=== PATIENT | female | born 1965 | race Caucasian/White ===

== ENCOUNTER 2017-12-18 18:04 | Inpatient (IN) | payer OTHER ==
[2017-12-18 18:42] LABS: HEMATOCRIT 45.1 % (36.0-47.0); HEMOGLOBIN 15.6 g/dl (12.0-15.5); MEAN CORPUSCULAR HEMOGLOBIN 32.2 pg (27.0-33.0); MEAN CORPUSCULAR HGB CONC 34.6 g/dl (32.0-36.5); MEAN CORPUSCULAR VOLUME 93.2 fl (80.0-96.0); PLATELET COUNT, AUTOMATED 198 10^3/uL (150-450); RED BLOOD COUNT 4.84 10^6/uL (4.00-5.40); RED CELL DISTRIBUTION WIDTH 13.2 % (11.5-14.5); WHITE BLOOD COUNT 7.2 10^3/uL (4.0-10.0)
[2017-12-18] MEDS: NICOTINE 21MG/24HR 1 EA TRANSDERMAL TD (18:44)
[2017-12-18 19:01] LABS: ALBUMIN 4.4 GM/DL (3.2-5.2); ALBUMIN/GLOBULIN RATIO 1.22 (1.00-1.93); ALKALINE PHOSPHATASE 129 U/L (45-117); ALT/SGPT 116 U/L (12-78); ANION GAP 11 MEQ/L (8-16); AST/SGOT 336 U/L (7-37); BILIRUBIN,DIRECT 0.2 MG/DL (0.0-0.2); BILIRUBIN,TOTAL 0.6 MG/DL (0.2-1.0); BLOOD UREA NITROGEN 9 MG/DL (7-18); CALCIUM LEVEL 8.4 MG/DL (8.5-10.1); CARBON DIOXIDE LEVEL 24 MEQ/L (21-32); CHLORIDE LEVEL 107 MEQ/L (98-107); CREATININE FOR GFR 0.67 MG/DL (0.55-1.30); ETHYL ALCOHOL (ETHANOL) 0.334 % (0.000-0.010); GLOMERULAR FILTRATION RATE > 60.0 (>51); GLUCOSE, FASTING 80 MG/DL (70-100); POTASSIUM SERUM 3.9 MEQ/L (3.5-5.1); SALICYLATE LEVEL 3.2 MG/DL (5.0-30.0); SODIUM LEVEL 142 MEQ/L (136-145)
[2017-12-18 19:10] LABS: ACETAMINOPHEN LEVEL < 2.0 UG/ML (10.0-30.0)
[2017-12-18 23:36] LABS: AMPHETAMINES LEVEL URINE NEGATIVE (NEGATIVE); BARBITURATES URINE NEGATIVE (NEGATIVE); BENZODIAZEPINES URINE NEGATIVE (NEGATIVE); CANNABINOIDS URINE NEGATIVE (NEGATIVE); COCAINE METABOLITE URINE NEGATIVE (NEGATIVE); METHADONE URINE NEGATIVE (NEGATIVE); OPIATES URINE NEGATIVE (NEGATIVE); PHENCYCLIDINE URINE NEGATIVE (NEGATIVE)
[2017-12-19] MEDS: PHENobarbital 30 MG TAB PO (02:00)
[2017-12-19] MEDS: ONDANSETRON 4 MG ORAL DISINTEGRATING TAB (Q0162 PER 1MG) PO (07:20)
[2017-12-19] MEDS: OXAZEPAM 15 MG CAP PO (07:38)
[2017-12-19] MEDS: FLUoxetine 20 MG CAP PO (08:28)
[2017-12-19] MEDS ORDERED: LORazepam 2 MG TAB PO (11:45)
[2017-12-19] MEDS ORDERED: MOM 30ML SUSPENSION UDC PO (13:30)
[2017-12-19] MEDS ORDERED: BENZONATATE 100 MG CAP PO (13:30)
[2017-12-19] MEDS ORDERED: MAALOX 30 ML SUSP *UDC PO (13:30)
[2017-12-19] MEDS ORDERED: ACETAMINOPHEN TAB 650MG DOSE (2X325MG) PO (13:30)
[2017-12-19] MEDS: NICOTINE 21MG/24HR 1 EA TRANSDERMAL TD (14:22)
[2017-12-19] MEDS: hydrOXYzine 25 MG TAB PO (14:23)
[2017-12-19] MEDS: FEXOFENADINE 60 MG TAB PO (14:23)
[2017-12-19] MEDS: FOLIC ACID 1 MG TAB PO (14:23)
[2017-12-19] MEDS: MULTIVITAMINS/MINERALS THERAP 1 TAB PO (14:23)
[2017-12-19] MEDS: THIAMINE 100 MG TAB PO ×2 (14:24→20:32)
[2017-12-19] MEDS: traZODone 50 MG TAB PO (21:28)
[2017-12-19] MEDS: guaiFENesin ER 600 MG TAB PO (22:23)
[2017-12-20 08:19] LABS: ALBUMIN 4.1 GM/DL (3.2-5.2); ALBUMIN/GLOBULIN RATIO 1.17 (1.00-1.93); ALKALINE PHOSPHATASE 124 U/L (45-117); ALT/SGPT 88 U/L (12-78); AST/SGOT 143 U/L (7-37); BILIRUBIN,DIRECT 0.5 MG/DL (0.0-0.2); BILIRUBIN,TOTAL 1.7 MG/DL (0.2-1.0); TOTAL PROTEIN 7.6 GM/DL (6.4-8.2)
[2017-12-20] MEDS: NICOTINE 21MG/24HR 1 EA TRANSDERMAL TD (08:25)
[2017-12-20] MEDS: FEXOFENADINE 60 MG TAB PO (08:25)
[2017-12-20] MEDS: MULTIVITAMINS/MINERALS THERAP 1 TAB PO (08:25)
[2017-12-20] MEDS: THIAMINE 100 MG TAB PO ×2 (08:25→20:47)
[2017-12-20] MEDS: guaiFENesin ER 600 MG TAB PO ×2 (08:25→20:47)
[2017-12-20] MEDS: FOLIC ACID 1 MG TAB PO (08:25)
[2017-12-20] MEDS: hydrOXYzine 25 MG TAB PO ×2 (08:25→13:11)
[2017-12-20] MEDS: FLUoxetine 20 MG CAP PO (08:25)
[2017-12-20] MEDS: POLYVINYL ALCOHOL OPHTH SOLN 15 ML(LIQUITEARS) OU (20:48)
[2017-12-20] MEDS: traZODone 50 MG TAB PO (22:25)
[2017-12-21] MEDS: hydrOXYzine 25 MG TAB PO ×2 (08:37→12:04)
[2017-12-21] MEDS: FLUoxetine 20 MG CAP PO (08:37)
[2017-12-21] MEDS: THIAMINE 100 MG TAB PO (08:37)
[2017-12-21] MEDS: MULTIVITAMINS/MINERALS THERAP 1 TAB PO (08:37)
[2017-12-21] MEDS: guaiFENesin ER 600 MG TAB PO (08:37)
[2017-12-21] MEDS: FOLIC ACID 1 MG TAB PO (08:37)
[2017-12-21] MEDS: FEXOFENADINE 60 MG TAB PO (08:38)
[2017-12-21] MEDS: NICOTINE 21MG/24HR 1 EA TRANSDERMAL TD (08:38)
[2017-12-21 09:40] LABS: ALBUMIN/GLOBULIN RATIO 1.11 (1.00-1.93); ALKALINE PHOSPHATASE 121 U/L (45-117); ALT/SGPT 88 U/L (12-78); ANION GAP 12 MEQ/L (8-16); AST/SGOT 116 U/L (7-37); BILIRUBIN,TOTAL 1.3 MG/DL (0.2-1.0); BLOOD UREA NITROGEN 13 MG/DL (7-18); CALCIUM LEVEL 9.1 MG/DL (8.5-10.1); CARBON DIOXIDE LEVEL 28 MEQ/L (21-32); CHLORIDE LEVEL 101 MEQ/L (98-107); GLOMERULAR FILTRATION RATE > 60.0 (>51); GLUCOSE, FASTING 142 MG/DL (70-100); POTASSIUM SERUM 3.7 MEQ/L (3.5-5.1); SODIUM LEVEL 141 MEQ/L (136-145); TOTAL PROTEIN 7.6 GM/DL (6.4-8.2)
[2017-12-21] MEDS: POLYVINYL ALCOHOL OPHTH SOLN 15 ML(LIQUITEARS) OU (10:54)
== END 2017-12-21 16:25 | disposition home or self-care (01) | DRG 775 ==
LOC: M ED INP 12-19 10:37 → M ED 18:04 → M PSY 12-19 12:30
DX: F10.24 Alcohol dependence with alcohol-induced mood disorder (principal); F60.3 Borderline personality disorder; F17.210 Nicotine dependence, cigarettes, uncomplicated; F10.229 Alcohol dependence with intoxication, unspecified; J44.9 Chronic obstructive pulmonary disease, unspecified; K76.0 Fatty (change of) liver, not elsewhere classified; F31.81 Bipolar II disorder; F41.1 Generalized anxiety disorder; Z79.899 Other long term (current) drug therapy

== ENCOUNTER → 2018-05-01 | Outpatient (REF) | payer OTHER ==
[2018-05-01 17:49] LABS: FREE T4 0.65 NG/DL (0.76-1.46); RHEUMATOID FACTOR QUANT < 10.0 IU/ML (<15.0); TOTAL PROTEIN 7.1 GM/DL (6.4-8.2); VITAMIN B12 LEVEL 606 PG/ML
[2018-05-01 17:50] LABS: FOLATE 23.8 NG/ML
[2018-05-01 18:09] LABS: ERYTHROCYTE SEDIMENTATION RATE 23 mm/hr (0-30)
[2018-05-01 18:33] LABS: ESTIMATED AVERAGE GLUCOSE 111 MG/DL (60-110); HEMOGLOBIN A1c 5.5 %
[2018-05-07 10:14] LABS: ALBUMIN 4.35 GM/DL (3.29-5.55); ALBUMIN % 61.2 % (55.8-66.1); ALPHA-1-GLOBULIN % 4.2 % (2.9-4.9); ALPHA-2-GLOBULINS 0.69 GM/DL (0.42-0.99); ALPHA-2-GLOBULINS % 9.7 % (7.1-11.8); BETA-1-GLOBULINS 0.39 GM/DL (0.28-0.60); BETA-1-GLOBULINS % 5.5 % (4.7-7.2); BETA-2-GLOBULINS % 5.8 % (3.2-6.5); GAMMA GLOBULIN % 13.6 % (11.1-18.8)
[2018-05-07 10:15] LABS: BETA-2-GLOBULINS 0.41 GM/DL (0.19-0.55); GAMMA GLOBULINS 0.97 GM/DL (0.65-1.58)
[2018-05-07 10:18] LABS: DRVV SCREEN 38.4 SEC
[2018-05-07 10:25] LABS: PTT LUPUS TYPE ANTICOAG SCREEN 0.9 (0-1.2)
[2018-05-08 14:13] LABS: ANTINUCLEAR ANTIBODIES DIRECT Negative (Negative); VITAMIN B1 LEVEL WHOLE BLOOD 167.9 nmol/L (66.5-200.0); VITAMIN B6,PYRIDOXAL PHOSPHATE 48.4 ug/L (2.0-32.8); VITAMIN E(ALPHA TOCOPHEROL) 18.5 mg/L (7.0-25.1); VITAMIN E(GAMMA TOCOPHEROL) 1.6 mg/L (0.5-5.5)
== END ==
LOC: M LABNEURO 13:01
DX: M54.5 Low back pain (principal); M54.2 Cervicalgia
CPT/HCPCS: 82746

== ENCOUNTER → 2020-08-13 | Outpatient (CLI) | payer OTHER ==
[~2020-08-13] MED LIST: BENZ-18 PO; CLON0.5T2 PO; FEXO180T58 PO; FLUO20CA20 PO; FOLI1TAB11 PO; HYDR-3363 PO; IBUP200C25 PO; MACR100C43 PO; MUCI600T37 PO; NICO21PAT TD; NITR100C2 PO; THIA100TA PO; TRAZ-252 PO; TRAZ1TAB10 PO; VITMTA PO
--- NOTE | 2020-08-13 11:25 | REP ---
INDICATION: RIGHT KNEE PAIN. COMPARISON: None. TECHNIQUE: Multiple sequences obtained in the axial, coronal and sagittal planes. FINDINGS: Menisci: There is a tear of the central aspect of the posterior horn of lateral meniscus. There appears to be fraying of the central apex of the anterior and posterior horns of the medial meniscus. Cruciate ligaments: Intact. Collateral ligaments: Intact. Extensor mechanism/patellar retinacula: Intact. Cartilage: There is moderate diffuse chondromalacia of the patella with focal fissuring peripherally of the lateral patellar facet. There is moderate chondromalacia in the lateral joint compartment, with a focal area of severe chondromalacia of the weight-bearing surface of lateral femoral condyle approximately 1 cm in diameter. There is severe diffuse chondromalacia of the medial femoral condyle and tibial plateau, with associated spurring. Bone marrow: There is moderate subchondral marrow edema in the medial femoral condyle. There is mild subchondral marrow edema centrally in the superior patella. Joint fluid: There is a small joint effusion. Popliteal region: There is a complex septated popliteal cyst inferiorly containing internal debris, measuring 7.1 x 2.5 x 2.6 cm. There is possible 5 mm joint body anteriorly. IMPRESSION: Tear central posterior horn lateral meniscus. Fraying at the apex of anterior and posterior horns medial meniscus. Areas of chondromalacia globally, most significantly of the medial femoral condyle and tibial plateau, also at the weight-bearing surface of lateral femoral condyle. Small joint effusion. Complex popliteal cyst. Possible 5 mm anterior joint body. <Electronically signed by Scott Dailey > 08/13/20 [id number]
== END ==
LOC: M RAD 08:06
PROVIDERS: ATTEND Orthopaedic Surgery
DX: M23.251 Derangement of posterior horn of lateral meniscus due to old tear or injury, right knee (principal); M71.21 Synovial cyst of popliteal space [Baker], right knee; M22.41 Chondromalacia patellae, right knee; M25.561 Pain in right knee

== ENCOUNTER → 2021-04-28 | Outpatient (CLI) | payer OTHER ==
--- NOTE | 2021-04-28 13:30 | REP ---
INDICATION: SCREEN MAMMO. COMPARISON: Multiple prior screening examinations, the most recent, 05/04/2020 TECHNIQUE: Digital screening (2D) mammography was performed bilaterally in the CC and MLO projections. Additionally, breast tomosynthesis (3D mammography) was performed bilaterally in the CC and MLO projections. FINDINGS: By history, the patient has no complaints of a palpable breast abnormality or other significant breast complaints. The [place] volumetric breast density pattern is C, the breasts are heterogeneously dense, which may obscure small masses. IMPRESSION: BIRADS/ACR : Category 1: Negative. This mammogram was interpreted with the aid of an FDA-approved computer-aided detection system. Because of the patient's breast density, screening MRI/whole breast ultrasound is warranted. The patient letter being requested is M1. RECOMMENDATION: Repeat screening mammography recommended 1 year (for women over 40). <Electronically signed by Rene Gasca > 04/28/21 [id number]
== END ==
LOC: M WHC 08:12
PROVIDERS: ATTEND Registered Nurse
DX: Z12.31 Encounter for screening mammogram for malignant neoplasm of breast (principal)

== ENCOUNTER → 2021-06-20 | Outpatient (REF) | payer OTHER ==
[~2021-06-20] MED LIST changes: +FLUO-96 PO; -FLUO20CA20 PO
[2021-06-20 13:13] LABS: BLOOD UREA NITROGEN 21 MG/DL (7-18); C REACTIVE PROTEIN QUANTITATIV 1.51 MG/DL (0.00-0.30); CALCIUM LEVEL 9.2 MG/DL (8.5-10.1); CARBON DIOXIDE LEVEL 26 MEQ/L (21-32); CHLORIDE LEVEL 106 MEQ/L (98-107); CREATININE FOR GFR 0.79 MG/DL (0.55-1.30); GLOMERULAR FILTRATION RATE > 60.0 (>51); GLUCOSE, FASTING 77 MG/DL (70-100); IRON (FE) 51 UG/DL (50-170); MAGNESIUM LEVEL 2.3 MG/DL (1.8-2.4); PHOSPHORUS LEVEL 3.1 MG/DL (2.5-4.9); POTASSIUM SERUM 4.6 MEQ/L (3.5-5.1); RHEUMATOID FACTOR QUANT < 10.0 IU/ML (<15.0); SODIUM LEVEL 139 MEQ/L (136-145)
[2021-06-20 13:17] LABS: TOTAL 25(OH) VITAMIN D 15.4 NG/ML (30.0-100.0)
[2021-06-20 13:18] LABS: VITAMIN B12 LEVEL 348 PG/ML (247-911)
== END ==
LOC: M SFHCRHEU 10:06
PROVIDERS: ATTEND Internal Medicine
DX: M25.50 Pain in unspecified joint (principal); M79.10 Myalgia, unspecified site; M54.9 Dorsalgia, unspecified; N28.9 Disorder of kidney and ureter, unspecified

== ENCOUNTER → 2021-07-21 | Outpatient (CLI) | payer OTHER ==
[2021-07-21 10:30] LABS: HEMOGLOBIN 13.3 g/dl (12.0-15.5); MEAN CORPUSCULAR HEMOGLOBIN 26.8 pg (27.0-33.0); MEAN CORPUSCULAR HGB CONC 32.4 g/dl (32.0-36.5); MEAN CORPUSCULAR VOLUME 82.5 fl (80.0-96.0); PLATELET COUNT, AUTOMATED 305 10^3/uL (150-450); RED BLOOD COUNT 4.97 10^6/uL (4.00-5.40); WHITE BLOOD COUNT 5.9 10^3/uL (4.0-10.0)
[2021-07-21 10:41] LABS: INR 0.93; PROTHROMBIN TIME 12.9 SECONDS (12.7-14.5)
[2021-07-21 10:52] LABS: ERYTHROCYTE SEDIMENTATION RATE 26 mm/hr (0-30)
[2021-07-21 11:08] LABS: ALBUMIN 3.7 GM/DL (3.2-5.2); ALT/SGPT 19 U/L (12-78); BILIRUBIN,TOTAL 0.4 MG/DL (0.2-1.0); BLOOD UREA NITROGEN 20 MG/DL (7-18); CALCIUM LEVEL 8.9 MG/DL (8.5-10.1); CARBON DIOXIDE LEVEL 24 MEQ/L (21-32); CHLORIDE LEVEL 106 MEQ/L (98-107); CREATININE FOR GFR 0.84 MG/DL (0.55-1.30); GLOMERULAR FILTRATION RATE > 60.0 (>51); GLUCOSE, FASTING 90 MG/DL (70-100); POTASSIUM SERUM 4.3 MEQ/L (3.5-5.1); SODIUM LEVEL 138 MEQ/L (136-145); TOTAL PROTEIN 7.4 GM/DL (6.4-8.2)
== END ==
LOC: M RAD 09:30
PROVIDERS: ATTEND Physician Assistant Surgical
DX: M17.0 Bilateral primary osteoarthritis of knee (principal)

== ENCOUNTER → 2021-08-31 | Outpatient (CLI) | payer OTHER ==
[~2021-08-31] MED LIST changes: +FEXO-117 PO; -FEXO180T58 PO
== END ==
LOC: M LAB 12:48
PROVIDERS: ATTEND Orthopaedic Surgery
DX: M17.11 Unilateral primary osteoarthritis, right knee (principal)

== ENCOUNTER → 2021-09-21 | Outpatient (CLI) | payer OTHER | LOC: M LAB 12:03 | PROVIDERS: ATTEND Internal Medicine | DX: E55.9 Vitamin D deficiency, unspecified (principal) ==

== ENCOUNTER → 2021-09-21 | Outpatient (CLI) | payer OTHER ==
[2021-09-21 13:41] LABS: HEMATOCRIT 44.4 % (36.0-47.0); HEMOGLOBIN 14.4 g/dl (12.0-15.5); MEAN CORPUSCULAR HEMOGLOBIN 27.3 pg (27.0-33.0); MEAN CORPUSCULAR HGB CONC 32.4 g/dl (32.0-36.5); MEAN CORPUSCULAR VOLUME 84.1 fl (80.0-96.0); PLATELET COUNT, AUTOMATED 327 10^3/uL (150-450); RED BLOOD COUNT 5.28 10^6/uL (4.00-5.40); WHITE BLOOD COUNT 8.8 10^3/uL (4.0-10.0)
[2021-09-21 13:48] LABS: INR 0.94
[2021-09-21 14:09] LABS: ERYTHROCYTE SEDIMENTATION RATE 16 mm/hr (0-30)
[2021-09-21 14:15] LABS: ALBUMIN 4.1 GM/DL (3.2-5.2); ALT/SGPT 18 U/L (12-78); BILIRUBIN,TOTAL 0.4 MG/DL (0.2-1.0); BLOOD UREA NITROGEN 17 MG/DL (7-18); CALCIUM LEVEL 9.8 MG/DL (8.5-10.1); CARBON DIOXIDE LEVEL 29 MEQ/L (21-32); CHLORIDE LEVEL 107 MEQ/L (98-107); CREATININE FOR GFR 0.88 MG/DL (0.55-1.30); GLOMERULAR FILTRATION RATE > 60.0 (>51); GLUCOSE, FASTING 96 MG/DL (70-100); POTASSIUM SERUM 4.6 MEQ/L (3.5-5.1); SODIUM LEVEL 141 MEQ/L (136-145); TOTAL PROTEIN 7.9 GM/DL (6.4-8.2)
== END ==
LOC: M LAB 12:01
PROVIDERS: ATTEND Orthopaedic Surgery
DX: Z01.818 Encounter for other preprocedural examination (principal); M17.11 Unilateral primary osteoarthritis, right knee

== ENCOUNTER 2022-01-05 12:13 | Outpatient (RCR) | payer MEDICAID | END 2022-01-08 | LOC: M PT 12:13 | PROVIDERS: ATTEND Orthopaedic Surgery | DX: Z47.1 Aftercare following joint replacement surgery (principal); Z96.651 Presence of right artificial knee joint ==

== ENCOUNTER 2022-01-19 13:00 | Outpatient (RCR) | payer MEDICAID, OTHER | END 2022-02-08 | LOC: M PT 13:00 | PROVIDERS: ATTEND Orthopaedic Surgery | DX: Z47.1 Aftercare following joint replacement surgery (principal); Z96.651 Presence of right artificial knee joint ==

== ENCOUNTER → 2022-05-06 | Outpatient (REF) | payer OTHER | LOC: M LAB REF 10:02 | PROVIDERS: ATTEND Physician Assistant Medical | DX: J30.9 Allergic rhinitis, unspecified (principal) ==

== ENCOUNTER → 2022-08-08 | Outpatient (CLI) | payer OTHER | LOC: M WHC 13:29 | PROVIDERS: ATTEND Internal Medicine | DX: Z12.31 Encounter for screening mammogram for malignant neoplasm of breast (principal) ==

== ENCOUNTER → 2023-01-26 | Outpatient (CLI) | payer OTHER | LOC: M RAD 12:41 | PROVIDERS: ATTEND Physician Assistant Medical | DX: Z87.891 Personal history of nicotine dependence (principal) ==

== ENCOUNTER 2023-06-08 12:08 | Emergency (ER) | payer OTHER ==
[~2023-06-08] VITALS: Ht 157.5 cm; Wt 80.0 kg
[2023-06-08] MEDS ORDERED: HYDR50TA70 (12:23)
[2023-06-08] MEDS ORDERED: PRED20TA (12:23)
[2023-06-08] MEDS ORDERED: FLUO40CA (12:23)
[2023-06-08] MEDS ORDERED: ALBU8.5H (12:23)
[2023-06-08] MEDS: predniSONE 20 MG TAB PO ONE (14:10)
[2023-06-08] MEDS: IPRATROPIUM 0.5MG/ALBUTEROL 2.5MG INH SOL UD 3ML (DUONEB) NEB ONE (14:24)
[2023-06-08] MEDS ORDERED: PRED20TA PO (15:44)
[2023-06-08] MEDS ORDERED: BENZ200C70 PO (15:47)
[2023-06-08 15:56] VITALS: BP 125/67; TEMP 97.6; O2SAT 98
== END 2023-06-08 15:52 | disposition home or self-care (01) ==
LOC: M ED 12:08
DX: J44.1 Chronic obstructive pulmonary disease with (acute) exacerbation (principal); J09.X2 Influenza due to identified novel influenza A virus with other respiratory manifestations; I10 Essential (primary) hypertension; M54.50 Low back pain, unspecified; F41.9 Anxiety disorder, unspecified; F32.A Depression, unspecified; F10.10 Alcohol abuse, uncomplicated; F17.200 Nicotine dependence, unspecified, uncomplicated; Z79.899 Other long term (current) drug therapy; Z79.51 Long term (current) use of inhaled steroids; Z79.52 Long term (current) use of systemic steroids
CPT/HCPCS: 71046; 87486; 87581; 87633; 87798; 94640; 99283; J7512